=== PATIENT | female | born 2000 | race African-American/Black ===

== ENCOUNTER 2020-03-20 05:49 | Emergency (ER) | payer OTHER ==
[2020-03-20 06:02] VITALS: TEMP 98.4
[2020-03-20 06:24] LABS: COLLECTION METHOD CLEAN CATCH
[2020-03-20 06:31] LABS: PH 5 (5-8); URINE APPEARANCE Cloudy; URINE BACTERIA None Seen /hpf; URINE BILIRUBIN Negative (NEGATIVE); URINE BLOOD 3+ (NEGATIVE); URINE COLOR Amber; URINE GLUCOSE Negative (NEGATIVE); URINE KETONE Negative (NEGATIVE); URINE LEUKOCYTE ESTERASE 1+ (NEGATIVE); URINE NITRATE Positive (NEGATIVE); URINE PROTEIN(semi-quant) 2+ (NEGATIVE); URINE RBC >50 /hpf; URINE UROBILINOGEN >=4.0 mg/dL (NEGATIVE)
[2020-03-20] MEDS ORDERED: BACTRIM DS 8001 TAB PO (06:37)
[2020-03-20 07:19] VITALS: BP 122/84; PULSE 71
== END 2020-03-20 07:00 | disposition home or self-care (01) ==
LOC: COL.ER 05:49
PROVIDERS: Emergency Medicine
DX: N39.0 Urinary tract infection, site not specified (principal); R30.0 Dysuria
CPT/HCPCS: J0696